=== PATIENT | female | born 1980 ===

== ENCOUNTER → 2020-11-07 | Outpatient (CLI) | payer MEDICAID ==
[~2020-11-07] MED LIST: [UNRECOGNIZED DRUG - OTHER] IM ONE
== END | disposition home or self-care (01) ==
LOC: COVVAC 17:39
PROVIDERS: ATTEND Internal Medicine Critical Care Medicine
DX: Z23 Encounter for immunization (principal)
CPT/HCPCS: 0001A; 91300